=== PATIENT | female | born 1925 | race Caucasian/White ===

== ENCOUNTER 2016-09-02 14:15 | Outpatient (RCR) | payer OTHER | END 2016-09-06 | disposition home or self-care (01) | LOC: PTY 14:15 | DX: M25.561 Pain in right knee (principal); M25.562 Pain in left knee; M17.0 Bilateral primary osteoarthritis of knee | CPT/HCPCS: 97110; G0283 ==

== ENCOUNTER 2016-09-09 14:00 | Outpatient (RCR) | payer OTHER | END 2016-10-04 | disposition home or self-care (01) | LOC: PTY 14:00 | DX: M17.0 Bilateral primary osteoarthritis of knee (principal); Z91.81 History of falling | CPT/HCPCS: 97110; G0283 ==

== ENCOUNTER 2016-10-07 12:30 | Outpatient (RCR) | payer OTHER | END 2016-11-04 | disposition home or self-care (01) | LOC: PTY 12:30 | DX: M17.0 Bilateral primary osteoarthritis of knee (principal); Z91.81 History of falling | CPT/HCPCS: 97110; G0283 ==